=== PATIENT | male | born 1995 | race African-American/Black ===

== ENCOUNTER 2016-10-31 06:36 | Emergency (ER) | payer MEDICAID ==
[~2016-10-31] VITALS: Ht 182.9 cm; Wt 79.0 kg
[2016-10-31 06:40] VITALS: BP 125/68
[2016-10-31] MEDS ORDERED: ONDANSETRON HCL 4 MG TABLET PO ONE (07:15)
== END 2016-10-31 08:13 | disposition home or self-care (01) ==
LOC: EMS 06:37
DX: K52.9 Noninfective gastroenteritis and colitis, unspecified (principal); R11.2 Nausea with vomiting, unspecified; F17.210 Nicotine dependence, cigarettes, uncomplicated
CPT/HCPCS: 99283; Q0162

== ENCOUNTER 2017-08-01 22:29 | Emergency (ER) | payer MEDICAID ==
[~2017-08-01] VITALS: Ht 182.9 cm; Wt 84.5 kg
[2017-08-02 00:50] VITALS: BP 130/70
[2017-08-02] MEDS ORDERED: CefTRIAXone SODIUM 1 GM/VIAL IM ONE (01:30)
[2017-08-02] MEDS ORDERED: DOXYCYCLINE HYCLATE 100 MG CAPSULE PO ONE (01:30)
== END 2017-08-02 02:13 | disposition home or self-care (01) ==
LOC: EMS 22:30
DX: N45.1 Epididymitis (principal); F17.210 Nicotine dependence, cigarettes, uncomplicated
CPT/HCPCS: 96372; 99283; J0696

== ENCOUNTER 2018-06-11 17:18 | Emergency (ER) | payer SELFPAY ==
[~2018-06-11] VITALS: Ht 185.4 cm; Wt 81.8 kg
[2018-06-11 17:41] VITALS: BP 158/91
== END 2018-06-11 19:38 | disposition home or self-care (01) ==
LOC: EMS 17:18
DX: K08.89 Other specified disorders of teeth and supporting structures (principal); R03.0 Elevated blood-pressure reading, without diagnosis of hypertension; F17.210 Nicotine dependence, cigarettes, uncomplicated

== ENCOUNTER 2018-11-05 19:44 | Emergency (ER) | payer SELFPAY ==
[~2018-11-05] VITALS: Ht 182.9 cm; Wt 84.1 kg
[2018-11-05] MEDS ORDERED: PERTUSS(ACELL),DIPH,TET VAC/PF 0.5 ML VIAL IM ONE (20:30)
[2018-11-05 21:30] VITALS: BP 141/86
== END 2018-11-05 21:58 | disposition home or self-care (01) ==
LOC: EMS 19:48
DX: S71.111A Laceration without foreign body, right thigh, initial encounter (principal); F17.210 Nicotine dependence, cigarettes, uncomplicated; F12.90 Cannabis use, unspecified, uncomplicated; W26.0XXA Contact with knife, initial encounter; Y93.89 Activity, other specified; Y92.89 Other specified places as the place of occurrence of the external cause; Y99.8 Other external cause status
CPT/HCPCS: 12002; 90471; 90715

== ENCOUNTER 2019-06-12 11:40 | Emergency (ER) | payer MEDICAID ==
[~2019-06-12] VITALS: Ht 182.9 cm; Wt 81.8 kg
[2019-06-12 11:44] VITALS: BP 127/77
== END 2019-06-12 12:00 | disposition left against medical advice (07) ==
LOC: EMS 11:41
DX: F41.9 Anxiety disorder, unspecified (principal); Z53.21 Procedure and treatment not carried out due to patient leaving prior to being seen by health care provider

== ENCOUNTER 2019-12-22 08:19 | Emergency (ER) | payer MEDICAID ==
[~2019-12-22] VITALS: Ht 182.9 cm; Wt 78.2 kg
[2019-12-22] MEDS ORDERED: LIDOCAINE/PF 1% 2 ML VIAL IM ONE (09:30)
[2019-12-22] MEDS ORDERED: AZITHROMYCIN 500 MG TABLET PO ONE (09:30)
[2019-12-22] MEDS ORDERED: CefTRIAXone SODIUM 1 GM/VIAL IM ONE (09:30)
[2019-12-22 09:42] VITALS: BP 140/75
[2019-12-22 09:52] LABS: APPEARANCE,URINE CLEAR (CLEAR); BILIRUBIN,URINE NEGATIVE (NEGATIVE); GLUCOSE, URINE (UA) NEGATIVE (NEGATIVE); KETONES,URINE NEGATIVE (NEGATIVE); LEUKOCYTE ESTERASE ,URINE NEGATIVE (NEGATIVE); NITRATE,URINE NEGATIVE (NEGATIVE); OCCULT BLOOD,URINE NEGATIVE (NEGATIVE); PH,URINE 7.5 (5.0-8.0); PROTEIN,URINE NEGATIVE (NEGATIVE); UROBILINOGEN,URINE 0.2 mg/dL (<=1.0)
== END 2019-12-22 10:08 | disposition home or self-care (01) ==
LOC: EMS 08:21
DX: N47.6 Balanoposthitis (principal); N34.2 Other urethritis; F17.210 Nicotine dependence, cigarettes, uncomplicated; F12.90 Cannabis use, unspecified, uncomplicated
CPT/HCPCS: 81003; 87491; 87591; 96372; 99283; 99406; J0696; J3490

== ENCOUNTER 2021-02-03 17:16 | Emergency (ER) | payer MEDICAID ==
[~2021-02-03] VITALS: Ht 185.4 cm; Wt 81.8 kg
[2021-02-03 19:00] VITALS: BP 149/91
[2021-02-03] MEDS ORDERED: IBUPROFEN 600 MG TABLET PO ONE (19:45)
[2021-02-03] MEDS ORDERED: CefTRIAXone SODIUM 1 GM/VIAL IM ONE (19:45)
[2021-02-03] MEDS ORDERED: ACETAMINOPHEN 500 MG TABLET PO ONE (19:45)
[2021-02-03] MEDS ORDERED: DOXYCYCLINE HYCLATE 100 MG TABLET PO ONE (19:45)
[2021-02-03] MEDS ORDERED: LIDOCAINE/PF 1% 2 ML VIAL IM ONE (19:45)
[2021-02-03 19:59] LABS: APPEARANCE,URINE CLOUDY (CLEAR); BILIRUBIN,URINE NEGATIVE (NEGATIVE); GLUCOSE, URINE (UA) NEGATIVE (NEGATIVE); KETONES,URINE NEGATIVE (NEGATIVE); LEUKOCYTE ESTERASE ,URINE NEGATIVE (NEGATIVE); NITRATE,URINE NEGATIVE (NEGATIVE); OCCULT BLOOD,URINE NEGATIVE (NEGATIVE); PROTEIN,URINE NEGATIVE (NEGATIVE); UROBILINOGEN,URINE 0.2 mg/dL (<=1.0)
== END 2021-02-03 21:46 | disposition home or self-care (01) ==
LOC: EMS 17:17
DX: N45.1 Epididymitis (principal); F17.210 Nicotine dependence, cigarettes, uncomplicated
CPT/HCPCS: 76870; 81003; 87491; 87591; 96372; 99284; J0696; J3490

== ENCOUNTER 2022-08-25 15:16 | Emergency (ER) | payer MEDICAID, OTHER ==
[~2022-08-25] VITALS: Ht 182.9 cm; Wt 81.8 kg
[2022-08-25 15:17] VITALS: TEMP 98.2
[2022-08-25] MEDS ORDERED: CefTRIAXone SODIUM 1 GM/VIAL IM ONE (15:45)
[2022-08-25] MEDS ORDERED: LIDOCAINE/PF 1% 2 ML VIAL IM ONE (15:45)
[2022-08-25] MEDS ORDERED: DOXYCYCLINE HYCLATE 100 MG TABLET PO ONE (15:45)
[2022-08-25 16:51] LABS: APPEARANCE,URINE HAZY (CLEAR); BILIRUBIN,URINE NEGATIVE (NEGATIVE); GLUCOSE, URINE (UA) NEGATIVE (NEGATIVE); KETONES,URINE NEGATIVE (NEGATIVE); LEUKOCYTE ESTERASE ,URINE LARGE (NEGATIVE); NITRATE,URINE NEGATIVE (NEGATIVE); OCCULT BLOOD,URINE NEGATIVE (NEGATIVE); PROTEIN,URINE NEGATIVE (NEGATIVE); UROBILINOGEN,URINE <=1.0 mg/dL (<=1.0)
[2022-08-25 17:00] VITALS: BP 139/91; PULSE 84; RESP 18
[2022-08-25 17:00] LABS: BACTERIA,URINE Few /HPF (None Seen); RBC,URINE 0-2 /HPF (0-2); SQUAMOUS EPITHELIAL CELL,UR Many /LPF (None Seen); WBC,URINE 51-100 /HPF (0-5)
[2022-08-25] MEDS ORDERED: DOXY-354 PO (17:08)
[2022-08-25] MEDS ORDERED: CEPH-558 PO (17:08)
[2022-08-27 06:06] LABS: HIV 1-2 SCREEN 4TH GEN W/RFLX Non Reactive (Non Reactive)
== END 2022-08-25 17:27 | disposition left against medical advice (07) ==
LOC: EMS 15:16
DX: N45.1 Epididymitis (principal); F17.210 Nicotine dependence, cigarettes, uncomplicated
CPT/HCPCS: 99283; 86592; 81001; 36415; 87086; 87186; 87491; 87591; 96372; 87389; J0696; J3490

== ENCOUNTER 2023-10-16 21:49 | Emergency (ER) | payer OTHER ==
[~2023-10-16] VITALS: Ht 182.9 cm; Wt 90.0 kg
[~2023-10-16 21:49] MED LIST: CEPH-558 PO; DOXY-354 PO
[2023-10-16 22:22] VITALS: BP 137/80; PULSE 95; RESP 15; TEMP 98.6; O2SAT 97
== END 2023-10-17 02:45 | disposition home or self-care (01) ==
LOC: EMS 21:49
DX: K40.90 Unilateral inguinal hernia, without obstruction or gangrene, not specified as recurrent (principal); R10.32 Left lower quadrant pain; F17.210 Nicotine dependence, cigarettes, uncomplicated
CPT/HCPCS: 99282; Z7502

== ENCOUNTER → 2023-11-16 | Emergency (ER) | payer OTHER ==
[~2023-11-16] VITALS: Ht 185.4 cm; Wt 100.0 kg
[2023-11-16 16:46] VITALS: BP 101/56; PULSE 74; RESP 20; TEMP 97; O2SAT 99
[2023-11-16] MEDS: SODIUM CHLORIDE 0.9% 1,000 ML IV ONE (16:58)
[2023-11-16 17:06] LABS: BASOPHILS % (AUTO) 0.5 % (0.0-2.0); EOSINOPHILS % (AUTO) 2.5 % (1.0-6.0); HEMATOCRIT 45.1 % (41-53); HEMOGLOBIN 14.8 g/dL (13.5-17.5); LYMPHOCYTES # (AUTO) 3.4 K/uL (1.0-4.8); LYMPHOCYTES % (AUTO) 41.9 % (22.0-44.0); MEAN CORPUSCULAR HEMOGLOBIN 27.7 pg (26.0-34.0); MEAN CORPUSCULAR HGB CONC 32.7 G/dL (31.0-37.0); MEAN CORPUSCULAR VOLUME 85 fL (80-100); MONOCYTES # (AUTO) 0.7 K/uL (0.1-1.0); NEUTROPHILS # (AUTO) 3.9 K/uL (1.8-7.7); NEUTROPHILS % (AUTO) 47.1 % (40.0-70.0); PLATELET COUNT (AUTO) 268 K/uL (150-450); RED BLOOD CELL COUNT(AUTO) 5.33 MIL/uL (4.50-5.90); RED CELL DISTRIBUTION WIDTH 13.6 % (11.5-14.5); WHITE BLOOD COUNT (AUTO) 8.2 K/uL (4.5-11.0)
[2023-11-16 17:11] LABS: ANION GAP 16 mmol/L (8-16); CALCIUM, TOTAL 9.2 mg/dL (8.8-10.5); CARBON DIOXIDE 20 mmol/L (22-29); CHLORIDE 102 mmol/L (98-107); CREATININE 1.15 mg/dL (0.60-1.30); GLOMERULAR FILTR. RATE CALC > 60 mL/min (>60); GLUCOSE,RANDOM 105 mg/dL (70-110); POTASSIUM 3.7 mmol/L (3.5-5.1); SODIUM SERUM 138 mmol/L (136-145); UREA NITROGEN, BLOOD 10 mg/dL (7-18)
[2023-11-16] MEDS: TraMADol HCL 50 MG TABLET PO ONE (18:22)
[2023-11-16 18:36] LABS: GLUCOMETER DEV NAME(LOC) ERT.6; GLUCOSE,POINT OF CARE 128 MG/DL (70-110)
== END | disposition still patient (30) ==
LOC: EMS 16:31
DX: S50.11XA Contusion of right forearm, initial encounter (principal); F17.210 Nicotine dependence, cigarettes, uncomplicated; W19.XXXA Unspecified fall, initial encounter; Y93.89 Activity, other specified; Y92.89 Other specified places as the place of occurrence of the external cause; Y99.8 Other external cause status
CPT/HCPCS: 80048; 82962; 85025; 93005; 99285